=== PATIENT | female | born 1945 ===

== ENCOUNTER 2016-08-30 09:57 | Day surgery (SDC) | payer OTHER ==
[2016-08-30] MEDS ORDERED: Lactated Ringer's 500 ML IV ONE (10:02)
[2016-08-30] MEDS ORDERED: Propofol 10 mg/ml Inj (20 ML) ONE (10:59)
[2016-08-30 11:15] VITALS: TEMP 97
[2016-08-30 11:26] VITALS: BP 107/69; PULSE 67; RESP 14; O2SAT 100
== END 2016-08-30 11:45 | disposition home or self-care (01) ==
LOC: H.ENDO 09:57
PROVIDERS: ATTEND Internal Medicine Gastroenterology
DX: K29.50 Unspecified chronic gastritis without bleeding (principal); R10.13 Epigastric pain; E11.9 Type 2 diabetes mellitus without complications
CPT/HCPCS: 43239; 88305; J2001; J2704; J7120

== ENCOUNTER 2016-09-13 08:17 | Day surgery (SDC) | payer OTHER ==
[2016-09-13] MEDS ORDERED: Lactated Ringer's 500 ML IV ONE (08:46)
[2016-09-13] MEDS ORDERED: Propofol 10 mg/ml Inj (20 ML) ONE (10:31)
[2016-09-13 11:09] VITALS: TEMP 96.6
[2016-09-13 11:12] VITALS: BP 131/59; PULSE 66; RESP 18; O2SAT 100
== END 2016-09-13 11:36 | disposition home or self-care (01) ==
LOC: H.ENDO 08:17
PROVIDERS: ATTEND Internal Medicine Gastroenterology
DX: Z12.11 Encounter for screening for malignant neoplasm of colon (principal); E11.9 Type 2 diabetes mellitus without complications; E78.00 Pure hypercholesterolemia, unspecified; I10 Essential (primary) hypertension; K57.30 Diverticulosis of large intestine without perforation or abscess without bleeding
CPT/HCPCS: 45378; J2704; J7120